=== PATIENT | female | born 1990 | race Caucasian/White ===

== ENCOUNTER → 2019-06-03 15:11 | Outpatient (CLI) | payer SELFPAY ==
[2019-06-03 17:37] LABS: Chlamydia Trachomatis by PCR Negative (Negative); Neisserai gonorrhoeae by PCR Negative (Negative); Probe Check PASS; Sample Adequacy Control PASS; Specimen Processing Control PASS
[2019-06-10 13:05] LABS: HPV Reflexed? NOT INDICATED
== END ==
PROVIDERS: Visit Provider Obstetrics & Gynecology
DX: Z12.4 Encounter for screening for malignant neoplasm of cervix (principal); Z11.3 Encounter for screening for infections with a predominantly sexual mode of transmission
CPT/HCPCS: 87491; 87591; 88175; G0145

== ENCOUNTER → 2019-06-18 09:54 | Outpatient (CLI) | payer SELFPAY ==
[2015-05-29 20:10] VITALS: BMI 33.7
[2019-06-18 10:52] LABS: Color, Urine Yellow (Yellow); Glucose, Dipstick Normal (Normal); Ketone-Dipstick Negative (Negative); Leukocyte Esterase-Dipstick 25 /ul (Negative); Nitrite-Dipstick Negative (Negative); Occult Blood-Urine Negative /ul (Negative); Protein-Dipstick Negative (Negative); Urine Bilirubin Dipstick Negative (Negative); Urine Clarity Clear (Clear); Urine Urobilinogen Normal (Normal)
[2019-06-18 10:53] LABS: Absolute Lymphocyte Count 1.94 X10^3/uL (0.83-4.51); Basophil# 0.03 X10^3/uL; Basophil% 0.4 % (0-1); Eosinophil# 0.05 X10^3/uL; Eosinophils% 0.7 % (0-5); Hematocrit 42.2 % (37-47); Hemoglobin 14.3 g/dL (12.0-15.0); Lymphocyte # 1.94 X10^3/ul (4.0); Lymphocyte % 26.1 % (19-41); Mean Corp Hgb Conc 33.9 g/dL (32-36); Mean Corpuscular Hgb 30.6 pg (27.0-32.0); Mean Corpuscular Volume 90.2 fL (81-99); Monocyte# 0.44 X10^3/uL; Monocyte% 5.9 % (0-10); NRBC Flagged by Analyzer 0 % (0-5); Neutrophil # 4.95 X10^3/uL (2.7-7.7); Neutrophil % 66.5 % (47-70); Platelet Count 234 K/mm3 (150-450); RBC Distribution Width CV 12.8 % (11.6-14.6); RBC Distribution Width SD 42.1 fl (35.1-43.9); Red Blood Count 4.68 M/mm3 (4.2-5.4); White Blood Count 7.4 K/mm3 (4.4-11.0)
[2019-06-18 11:26] LABS: Thyroid Stim Hormone (TSH) 0.27 uIU/mL (0.358-3.74)
[2019-06-18 12:08] LABS: HIV - WCH Non-Reactive (Nonreactive); Hepatitis B Surface Antigen Non-Reactive (Nonreactive); Hepatitis C Antibody Non-Reactive (Nonreactive); Rubella IgG 45.3 IU/mL
[2019-06-26 02:36] LABS: Prenatal RPR NONREACTIVE (NONREACTIVE)
== END ==
PROVIDERS: Visit Provider Obstetrics & Gynecology
DX: Z34.81 Encounter for supervision of other normal pregnancy, first trimester (principal)
CPT/HCPCS: 36415; 81002; 84443; 85025; 86703; 86762; 86803; 87340

== ENCOUNTER → 2019-10-15 09:52 | Outpatient (CLI) | payer SELFPAY ==
[2015-05-29 20:10] VITALS: BMI 33.7
[2019-10-15 12:35] LABS: Hematocrit 38.6 % (37-47); Hemoglobin 12.9 g/dL (12.0-15.0); Mean Corp Hgb Conc 33.4 g/dL (32-36); Mean Corpuscular Hgb 29.7 pg (27.0-32.0); Mean Corpuscular Volume 88.7 fL (81-99); Mean Platelet Vol. 9.9 fl (6.2-12.0); Platelet Count 234 K/mm3 (150-450); RBC Distribution Width CV 12.5 % (11.6-14.6); RBC Distribution Width SD 40.9 fl (35.1-43.9); Red Blood Count 4.35 M/mm3 (4.2-5.4); White Blood Count 8.8 K/mm3 (4.4-11.0)
[2019-10-15 13:10] LABS: Glucose Challenge Gest 1H 50g 156 mg/dL (70-140)
== END ==
PROVIDERS: Visit Provider Obstetrics & Gynecology
DX: Z34.83 Encounter for supervision of other normal pregnancy, third trimester (principal)
CPT/HCPCS: 36415; 82950; 85027; 86850

== ENCOUNTER → 2019-10-23 09:38 | Outpatient (CLI) | payer SELFPAY ==
[2019-10-23 10:55] LABS: Glucose GTT-Gestation. Fasting 93 mg/dL (<105)
[2019-10-23 12:10] LABS: Glucose GTT-Gestational 1 Hr 177 mg/dL (<190)
[2019-10-23 13:36] LABS: Glucose GTT-Gestational 3 Hr 117 L (<145)
[2019-10-23 13:40] LABS: Glucose GTT-Gestational 2 Hr 163 mg/dL (<165)
== END ==
PROVIDERS: Referring Provider Obstetrics & Gynecology; Visit Provider Obstetrics & Gynecology
DX: O24.912 Unspecified diabetes mellitus in pregnancy, second trimester (principal); Z3A.00 Weeks of gestation of pregnancy not specified
CPT/HCPCS: 36415; 82951; 82952

== ENCOUNTER → 2019-12-08 | Outpatient (CLI) | payer SELFPAY | END | disposition home or self-care (01) | LOC: LABSPEC 12-09 08:49 | PROVIDERS: Visit Provider Obstetrics & Gynecology | DX: Z36.85 Encounter for antenatal screening for Streptococcus B (principal) | CPT/HCPCS: 87081 ==

== ENCOUNTER 2019-12-30 05:30 | Inpatient (IN) | payer SELFPAY ==
--- NOTE | 2019-12-29 20:08 | PCM.HP.BLA ---
History and Physical Date of Admission: 12/30/19 [facility] ANTEPARTUM RECORD - HISTORY AND PHYSICAL (12/29/2019) Name: ADAM HAINESHA OB Physician: PB History of This : This is a 29-year-old 2 para 1 who presents for repeat . care has been remarkable for a prior hemorrhage with transfusion. [facility]'s Physician: GAUTAM Vaughn..................................................................... : 1990 Age: 29 Address: [address] [place] [address] Phone: (H) [phone] (O) [phone] Insurance Carrier: Emergency Contact: RIGO HAINES [phone] ...................................................................... Final AUDELIA: 01/05/20 By Ultrasound: 11 weeks 2 days PARITY: (G-Total Pregnancies P-Fullterm,Premature,Induced AB,Spont AB, Ectopics, Multiple,Living) AUDELIA CONFIRMATION: By LMP: 04/08/19 Initial Exam: 01/13/20 By First Ultrasound Exam: 01/05/20 Final AUDELIA: 01/05/20 OB PROBLEM LIST: Declines MSAFP, CF Dilated bilateral renal pelvis. right kidney=5.9mm left kidney=4.6mm. marginal previa 1.3cm from cx.; repeat u/s 28-32 weeks First child weighed 9 lbs 12 oz h/o GBS positive Possible travel to [place] in the spring, CDC Zika precautions discussed Post- hemmorhage with transfusion of PRBC's x 2 Prior CS, plan repeat ALLERGIES: NKDA MEDICATIONS: 28 mg iron-800 mcg tablet One pill by mouth once a day Supplement (s) [No Strength] Plexus daily SOCIAL HISTORY: Smoking - used to smoke but quit Alcohol Use - denies drinking Diet - balanced Diet Lifestyle - Exercise - regular Employer - [employer] Job Description - Illicit Drug Use - denies use of street drugs Sexual Activity - Residence - lives with Place of - [place], [place] Spouse-Sig Other Name - Rigo Haines Spouse-Sig Other Occupation - [employer] Spouse-Sig Other Phone No - [phone] Children Name(s) - Caden(15) PRIOR DELIVERY HISTORY DEL DATE GEST LAB WT LB WT OZ TYPE ANES LABOR TX 28 May 17 41 26 9 12 C-Sec Epidural No ANTEPARTUM FLOW CHART VISIT RTC FU F F WA U U DATE WK MD WKS HT PN HR M SS BP ED WT WA GL D EF ST __ ____ ___ __ __ ___ __ __ __ ___ __ __ __ ___ __ 23 Dec 38 JMW 3 38 + + 124/80 sl 221 tr - 14 Dec 37 JMW 1 37 + + 124/82 sl 220 - - 07 Dec 36 JMW 1 36 V + + 110/76 sl 216 - - ft 50 -2 03 Nov 30 JMW 3 31 + + 104/72 tr 210 - - 13 Oct 30 JMW 3 28 + ? 128/76 0 206 tr 1+ 14 Sep 25 JMW 4 24 + + 112/70 0 200 - - 18 Aug 21 JMW 4 20 + + 120/72 0 193 - - Jul 17 JMW 4 15 + O 114/64 0 187 - - Jun 12 4 on 112/78 184 ANTEPARTUM NOTE(S): Dec 24 2019: Pre-op for R/C-S, Good FM Dec 15 2019: Uncomfortable,Good FM Dec 08 2019: LARC form signed, GBS Today,Good FM Nov 03 2019: Good FM,Periodic Vertigo Oct 15 2020: CBC,OGCT,Antibody Screen Today,Rhogam Today,Sono Today Sep 15 2019: Glucola/Instructions given,Good FM,Feeling Well Aug 19 2019: Sono Today,FM Noted,Feeling Well Jul 14 2019: Doing Well, Declines AFP Jun 18 2019: COMPREHENSIVE ANTEPARTUM NOTE(S): Dec 24 2019: Yobani presents here today for PNV with questions answered and consents signed for Repeat scheduled for 12/30/19 with JW at [facility]. Reports feeling well and Good FM. PUSHPA Dec 15 2019: H taken to OB. tkg Jun 18 2019: Feeling well; denies cramping, VB, LOF; Dating US, labs drawn and NOB visit today; growth on US inconsistent w/LMP, changed AUDELIA to 01/2020 ; discussed warning signs, s/s PTL; RTO 4 weeks for PNV - KVW Jun 18 2019: Yobani is here for her NOB visit at 11 w 2 d, she is a with an AUDELIA of 01/05/2020. , Rigo, accompanies Yobani today; they have a 4 year old daughter at home who was delivered by C/S. Past history updated. Yobani states that she did not progress past 4 cms, that the baby weighed 9 lbs 12 oz, and that Yobani had a post- hemorrhage and needed 2 Units of PRBC's. Delivery at [facility] by repeat C/S is planned and Yobani will formula feed the baby. Office practice patterns reviewed, including labs that will be collected today. She has reviewed the office handbook, including emergencies/danger signs to report, and common OTC medications approved/not approved for use during . Yobani is a former smoker, she quit several years ago; she denies use of drugs or ETOH. Genetic Screening form completed. MSAFP and CF testing declined, consent signed as such. Yobani takes a daily multivitamin, and Plexus vitamin with DHA and probiotic; she states that she tolerates both well. Daily nausea is beginning to resolve, Yobani states that she generally feels well, and has not vomited at all. Reviewed round ligament pain, Kegel exercises, and reporting suspected UTI. Yobani eats an overall well balanced diet, limits intake of caffeine, and drinks roughly a gallon of water per 24 hrs. She knows to limit empty calories. caloric needs, and recommended weight gain discussed. Printed guide for food safety during provided with review. She does cross fit several times a week, and has modified her routine and how much she lifts for . She states that she understands all information provided during NOB visit, and has no questions following same. AW New Jun 05 2019: GC and chlamydia neg. EB Jun 03 2019: ok Jun 03 2019: Yobani presents here today for Missed Menses appointment. 28 y.o. G 2 P 1 previous smoker(quit in 2014) with history of regular menses and LMP of 04-08-19 lasting her average of 3 days. UPT is positive today in our Office. Presents at 7 weeks 6 days with an Approximate AUDELIA of 01-14-20 with plans for a Repeat at [facility]. Denies spotting/bleeding thus far in . Reports having periodic nausea and fatigue with tender breasts. History of normal pap screening in 2012. Medication and Allergy lists up-dated. Educational Materials given. PUSHPA REVIEW OF SYSTEMS: GENERAL - Denies fever, or chills SKIN - Denies rash, new skin lesions, or change in moles EYES - Denies blurred vision, or change in visual acuity EARS - Denies ear pain, or difficulty hearing NOSE - Denies nasal congestion, discharge, or bleeding MOUTH - Denies sore throat, or difficulty swallowing NECK - Denies pain or swelling RESPIRATORY - Denies shortness of breath, cough, wheezing CARDIOVASCULAR - Denies palpitations, chest pain, orthopnea, PND, peripheral edema, syncope or claudication GASTROINTESTINAL - Denies nausea, vomiting, diarrhea, constipation, Denies abdominal pain, melena and or bright red blood GENITOURINARY - Denies dysuria, frequency of urination, urgency, or hesitancy MUSCULOSKELETAL - Denies joint or muscle pain, or back pain NEUROLOGICAL - Denies localized numbness, weakness, or tingling PSYCHIATRIC - Denies depression, anxiety, substance abuse or suicide attempts ENDOCRINE - Denies heat or cold intolerance, weight loss or gain, increasing thirst HEMATO-IMMUNOLOGIC - Denies easy bruising, bleeding, oral ulcerations or recurrent infections GENETICS SCREENING: Age 35+ years: No Thalassemia: No Neural Tube Defect: No Down Syndrome: No DENYS-SACHS: No Sickle Cell Disease: No Hemophilia: No Musc. Dystrophy: No Cystic Fibrosis: No-declines screening [place] Chorea: No Mental Retardation: No Fragile X: No Other genetic: No Other defects: No SABs/still births: No Drugs since LMP: No INFECTION HISTORY: High risk AIDS: No High risk Hepatitis: No Exposed to TB: No Exposed to Herpes: No Rash/viral illness since LMP: No History of STD: No MENSTRUAL HISTORY: *Menses Amount/Duration: 3 daysMenses Regularity: RegularFrequency: monthlyMenarche (Age Onset): 12* PAST SUMMARY: PARITY: 1. Total Pregnancies............ 2 2. Full Term Pregnancies........ 1 3. Premature.................... 0 4. Abortions - Induced.......... 0 5. Abortions - Spontaneous...... 0 6. Ectopics..................... 0 7. Multiple Births.............. 0 8. Living Children.............. 1 PAST #1: Date of :.................. 05/30/15 Gestation Weeks:................ 41 Length of labor(hours):......... 26 Sex:............................ F Weight-lbs:............... 9 Weight-oz:................ 12 Type of Delivery:............... C-Sect Type of Anesthesia:............. Epidural Place of Delivery:.............. [place] Treatment of Labor?:.... No Comment: IOL, ARREST OF DILATION, PPH PHYSICAL EXAMINATION General Appearence: 29 yo female in no acute distress Vital Signs: AF, VSS Heart: RRR without rubs or gallops Lungs: CTA x 2 Breasts: deferred Abdomen: gravid Pelvis: Cervix: Not examined Presentation: cephalic Station: Not examined Fetus: Size: AGA Movement: present Heart: present Labs for : YOBANI HAINES since 04/10/2019 ORDER DATEIN DESCRIPTION VALUE UNITS RANGE A+ COMMENT CULTURE, GROUP B STREPTOCOCCUS 12/08/19 NOTE Original Ordering Provider: Rodger COUCH Culture Group B Beta Streptococcus is not isolated. Reviewed by RODGER GESTATIONAL GTT 3HR 100G 10/23/19 NOTE Original Ordering Provider: Rodger Castro GLU GTT-FASTING 93 mg/dL <105 GLUCOSE TOLERANCE TEST FOR Reference Interval GESTATIONAL DIABETES Fasting <105 mg/dL 1 hour <190 mg/dl 2 hour <165 mg/dl 3 hour <145 mg/dl GLU GTT- 1HR 177 mg/dL <190 GLU GTT- 2HR 163 mg/dL <165 GLU GTT- 3HR 117 L <145 Reviewed by KAILEE ANTIBODY SCREEN 10/15/19 [facility]~[address] [place], [address]~ ANTIBODY SCREEN NEGATIVE N Reviewed by RODGER GLUCOSE CHALLENGE GEST 1H 50G 10/15/19 NOTE Original Ordering Provider: Rodger Castro GLU GEST 50G 1H 156 mg/dL 70-140 H Reviewed by RODGER CBC-COMPLETE BLOOD CNT NO DIFF 10/15/19 NOTE Original Ordering Provider: Rodger Castro WBC 8.8 K/mm3 4.4-11.0 RBC 4.35 M/mm3 4.2-5.4 HGB 12.9 g/dL 12.0-15.0 HCT 38.6 % 37-47 MCV 88.7 fL 81-99 MCH 29.7 pg 27.0-32.0 MCHC 33.4 g/dL 32-36 RDW CV 12.5 % 11.6-14.6 RDW SD 40.9 fl 35.1-43.9 PLT 234 K/mm3 150-450 MPV 9.9 fl 6.2-12.0 Reviewed by RODGER RPR 06/18/19 NOTE Original Ordering Provider: Rodger Castro RPR NONREACTIVE NONREACTIVE Reviewed by RODGER T AND S-NO CHARGE W/PNP 06/18/19 Reason for Type AND Screen/Red Cells: Surgery? N [facility]~[address] [place], [address]~ BLOOD TYPE GEL B NEGATIVE N AB SCREEN GEL NEGATIVE N Reviewed by RODGER HEPATITIS C ANTIBODY 06/18/19 NOTE Original Ordering Provider: Rodger Castro HEPATITIS C AB Non-Reactive Nonreactive Non Reactive: < 0.8 Equivocal: >/= 0.8 to < 1.0 Reactive: >/= 1.0 The CDC recommends that a reactive/equivocal HCV antibody result be followed up by the HCV Nucleic Acid Amplification test (703813) Reviewed by RODGER HEPATITIS B SURFACE ANTIGEN 06/18/19 NOTE Original Ordering Provider: Rodger Castro HEPB SURFACE AG Non-Reactive Nonreactive Reviewed by RODGER HIV - H 06/18/19 NOTE Original Ordering Provider: Rodger Castro HIV - [facility] Non-Reactive Nonreactive Reviewed by RODGER RUBELLA IGG 06/18/19 NOTE Original Ordering Provider: Rodger Castro RUBELLA IGG 45.3 IU/mL Antibody results Interpretation of Immune Status < 5 IU/ml Presumed Non-immune 5 - < 10 IU/ml Equivocal > or = 10 IU/ml Presumed Immune Reviewed by RODGER THYROID STIM HORMONE (TSH) 06/18/19 NOTE Original Ordering Provider: Rodger Castro TSH 0.27 uIU/mL 0.358-3.74 L Reviewed by RODGER CBC W/DIFF, AUTOMATED 06/18/19 NOTE Original Ordering Provider: Rodger Castro WBC 7.4 K/mm3 4.4-11.0 RBC 4.68 M/mm3 4.2-5.4 HGB 14.3 g/dL 12.0-15.0 HCT 42.2 % 37-47 MCV 90.2 fL 81-99 MCH 30.6 pg 27.0-32.0 MCHC 33.9 g/dL 32-36 RDW CV 12.8 % 11.6-14.6 RDW SD 42.1 fl 35.1-43.9 PLT 234 K/mm3 150-450 MPV 10.0 fl 6.2-12.0 NEUT% 66.5 % 47-70 LY% 26.1 % 19-41 MONO% 5.9 % 0-10 EO% 0.7 % 0-5 BASO% 0.4 % 0-1 IM GRAN % 0.400 % 0.0-0.9 IG% - Immature Granulocytes (promyelocytes, myelocytes and metamyelocytes) > 1% indicates that a LEFT SHIFT is Present. ABSOLUTE NEUT 5.0 X10 3/uL 2.0-7.7 ABSOLUTE LYMPH 1.94 X10 3/uL 0.83-4.51 NRBC, FLAGGED 0 % 0-5 Reviewed by RODGER URINALYSIS, ROUTINE (DIPSTICK) 06/18/19 NOTE Original Ordering Provider: Rodger Castro COLOR Yellow Yellow CLARITY Clear Clear GLUCOSE, UR Normal mg/dl Normal BILIRUBIN URINE Negative mg/dL Negative KETONE UR Negative mg/dl Negative SP.GR. DIPSTX 1.010 1.002-1.030 PH UR 7.0 5.0 - 8.0 PROT DIPSTX Negative mg/dl Negative UROBILI Normal mg/dl Normal NITRITE UR Negative Negative OCCULT BLOOD-UR Negative /ul Negative LEUK ESTERASE 25 /ul Negative H Reviewed by RODGER MCLEAN IG W/REFLEX HR HPV APTIMA 06/03/19 NOTE Original Ordering Provider: Rodger Castro DIAGN . NEGATIVE FOR INTRAEPITHELIAL LESION OR MALIGNANCY. THIS SPECIMEN WAS RESCREENED PART OF OUR FOOD SERVER PROGRAM. ADEQ . Satisfactory for evaluation. Endocervical and/or squamous metaplastic cells (endocervical component) are present. PERFORM . Paz Cunningham, Senior Administrator Support (ASCP) QC REV . Zakiya Moreira, Supervisory Senior Administrator Support (ASCP) TEST METHOD . This liquid based ThinPrep(R) pap test was screened with the use of an image guided system. COMM . . PAPSMR . The Pap smear is a screening test designed to aid in the detection of premalignant and malignant conditions of the uterine cervix. It is not a diagnostic procedure and should not be used as the sole means of detecting cervical cancer. Both false-positive and false-negative reports do occur. HPV RFLX . The HPV DNA reflex criteria were not met with this specimen result therefore, no HPV testing was performed. Performed at: [address] [id number] Caregiver Services Home: Juanita Prakash MD, Phone: [phone] Reviewed by GUERRERO YATES/ANYI [facility] BY PCR 06/03/19 NOTE Original Ordering Provider: Rodger Castro [facility] PCR Negative Negative ANYI BY PCR Negative Negative Reviewed by GUERRERO Impression /Plan: 39+ week intrauterine for repeat . We have discussed the risk, benefits, and alternatives of this procedure and the patient desires we proceed. Preparations in progress for delivery. Essential Procedure Criteria Procedure Essential: Yes Criteria Note: On 11/17/2019 the [place] Department of Health ([facility]) Public Order signed by [facility] Director Joana Acosta M.D., regarding the Management of Non-Essential Surgeries and Procedures for the purpose of preserving Personal Protective Equipment (PPE) and critical hospital capacity and resources within [place] went into effect as of 11/18/2019 at 5:00PM. According to the [facility] Public Order: This action will remain in full force and effect until the State of Emergency declared by the Governor no longer exists or the Director of the [facility] rescinds or modifies this Order.. This [facility] order stated all non-essential or elective surgeries and procedures that utilize PPE should be delayed unless there is undue risk to the current or future health of a patient. After reviewing the aforementioned [facility] Public Order and the patients clinical case, I have determined that the scheduled procedure meets the criteria to go forward. Risk to Patient if Procedure Delayed: Risk of rapidly worsening to severe symptoms if delayed
[2019-12-30] VITALS (21 sets, daily range): BP systolic 105–126; BP diastolic 57–80; PULSE 70–96; RESP 12–18; TEMP 36.1–36.8; O2SAT 97–100; BMI 34.4
[2019-12-30] MEDS: Lactated Ringers 1,000 ML 999 ML IV (05:50)
[2019-12-30 06:05] LABS: Absolute Lymphocyte Count 2.25 X10^3/uL (0.83-4.51); Absolute Neutrophil Count 7.2 X10^3/uL (2.0-7.7); Basophil# 0.03 X10^3/uL; Basophil% 0.3 % (0-1); Eosinophil# 0.07 X10^3/uL; Eosinophils% 0.7 % (0-5); Hematocrit 37.3 % (37-47); Hemoglobin 12.5 g/dL (12.0-15.0); Lymphocyte # 2.25 X10^3/ul (4.0); Lymphocyte % 21.3 % (19-41); Mean Corp Hgb Conc 33.5 g/dL (32-36); Mean Corpuscular Hgb 29.1 pg (27.0-32.0); Mean Corpuscular Volume 86.9 fL (81-99); Mean Platelet Vol. 9.9 fl (6.2-12.0); Monocyte# 0.89 X10^3/uL; Monocyte% 8.4 % (0-10); NRBC Flagged by Analyzer 0 % (0-5); Neutrophil # 7.22 X10^3/uL (2.7-7.7); Neutrophil % 68.5 % (47-70); Platelet Count 219 K/mm3 (150-450); RBC Distribution Width SD 40.7 fl (35.1-43.9); Red Blood Count 4.29 M/mm3 (4.2-5.4); White Blood Count 10.5 K/mm3 (4.4-11.0)
[2019-12-30] MEDS: Lactated Ringers 1,000 ML 150 ML IV (06:48)
[2019-12-30] MEDS: Sodium Citrate/Citric Acid 30 ML UDC PO (07:00)
--- NOTE | 2019-12-30 07:16 | PCM.OPRPT ---
Delivery Classification: Scheduled Final AUDELIA: 01/05/20 Final AUDELIA Source: US <20 weeks Gestational age: 39 Weeks and 1 Days filer and sander: Logan Rosenbaum Type of Anesthesia:: Spinal - With Duramorph Implants Used: None Date of Procedure: 12/30/19 Pre-Operative Diagnosis: Prior Section Post-Operative Diagnosis: Prior Section Description of Procedure: Surgeon: Darrius Castro MD, FACOG Anesthesia: Jessica Varghese CRNA Procedure: Repeat Low Transverse Cervical Caesarean Section Findings: Viable female with Apgars of 8/9 in caput anterior presentation with clear amniotic fluid and normal three-vessel placenta. Indication: This is a 29-year-old who presents for her second at 39+ weeks gestation. care has otherwise been uneventful. The patient has been counseled regarding the risk and indications of this procedure including the possibility of bleeding infection and injury to surrounding structures such as bowel bladder. All questions were answered. Procedure: Patient was taken to the operating room where after spinal anesthesia was placed, the patient was prepped and draped in usual sterile fashion and a German catheter was placed. The abdomen was entered through the patient's prior Pfannenstiel incision and peritoneum was entered bluntly. After developing a bladder flap on the lower uterine segment a low transverse incision was made on the uterus and head was easily delivered onto the operative field the nose mouth and oropharynx were bulb suctioned. Subsequently a viable female was born with Apgars of 8/9. The infant was noted to cry move all extremities vigorously on the operative field. The umbilical cord was doubly clamped and ligated and handed to the nursery personnel who were present for the delivery. Placenta was delivered and noted to be 3 vessels and normal. Uterus was exteriorized and remaining placental tissue was removed. The uterus was then closed in 2 layers first with running locked 0 Vicryl suture followed by a second imbricating layer with 0 Vicryl suture. 0 Vicryl suture was then used in a horizontal mattress interrupted fashion to affect final hemostasis of the uterine incision line. Normal fallopian tubes and ovaries were visualized and the uterus was returned to the pelvis. Hemostasis was noted and rectus abdominis muscles were reapproximated in the midline with interrupted Number 0 Vicryl suture in a horizontal mattress fashion. Fascia was closed with running Number 1 PDS Strata fix suture. Subcutaneous tissue was irrigated with copious amounts of saline solution and then closed with running 3-0 Vicryl suture. Skin was closed with 4-0 monocryl suture in a running subcuticular fashion. Steri strips and a Mepilex dressing were placed across the incision. The patient tolerated the procedure well and was taken to the recovery room in satisfactory condition. Sponge, needle, and instrument counts were all reportedly correct. EBL was less than 500 cc. Ancef 2 gms IV was given prior to the procedure. Spicemen to Pathology: None Complications: None Amniotic Fluid Description: Clear Placenta Disposition: [facility] Specimen(s) sent to pathology: None Drain: German to straight drain Fluids Replaced: Crystalloid Cord Entanglement: None Cord Vessel Description: 3 Vessels Esitmated Blood Loss (ml): 500 cc Infant Gender: Female (1 minute): 8 (5 minute): 9 Antibiotic Given: Ancef 2 grams IV x1 Pt instructed on risks of surgery: Bleeding, Infection, Injury to surrounding structure(s) including bowel and bladder Complications: None - Admit VTE Documentation VTE Present on Admission: Yes VTE Mechan Device Prophylaxis: SCD's VTE Pharm Prophylaxis ordered?: Yes
[2019-12-30] MEDS: Cefazolin 2 GM in 0.9% Normal Saline 100 ML IV (07:17)
--- NOTE | 2019-12-30 07:18 | DCINST_ITS ---
Discharge Diet: No Restrictions Discharge Activity: May not drive while taking narcotic pain medications., May Shower, May Take a Tub Bath May resume sexual activity in: 4-6 weeks Lifting Restrictions: 20 pounds Additional Activity Instructions:: Nothing in the vagina for 4-6 weeks. You may return to work/school in 6 weeks. Call your doctor if your incision/area has: Continuous Slow Oozing, Sudden Increased Bleeding, Increased Pain/ Swelling, Increased Redness, Foul Smelling Discharge Call your doctor if you observe: Fever of 101 or Higher, Inability to urinate, Inability to have a bowel movement, Using more than one pad per hour Additional Instructions: If you experience any of the following, contact your healthcare provider. * Bleeding that soaks a pad every hour for 2 hours * Fever 100.4 or higher * Unrelieved incision or abdominal pain * Swelling, redness, discharge or bleeding from your incision or episiotomy site * Your incision begins to separate * Problems urinating (including inability to urinate or burning while urinating). * Visual changes * Severe headache * Flu-like symptoms * Pain or redness in one of both of your breasts * Pain, warmth, tenderness or swelling in your legs, especially the calf area * Frequent nausea and vomiting * Symptoms of depression or anxiety If you experience any of the following, call 911 or go to the nearest Emergency Room. * Chest pain * Problems breathing * Seizure activity * Partial or complete paralysis of a body part, slurred speech, weakness or drooping of the face, or a sudden inability to walk or hold your balance Allergies/Adverse Reactions: Allergies No Known Allergies Allergy (Verified 12/30/19 05:37) Medications to take at Discharge Prenatabs FA 1 tab PO DAILY 05/29/15 Docusate Sodium [Colace] 100 mg PO BID PRN PRN #60 capsule 12/30/19 Oxycodone [Oxyir] 5 mg PO Q6H PRN PRN 7 Days #20 tablet 12/30/19 The following prescriptions were given: Docusate Sodium [Colace] 100 mg PO BID PRN PRN #60 capsule PRN Reason: Constipation Oxycodone [Oxyir] 5 mg PO Q6H PRN PRN 7 Days #20 tablet PRN Reason: Pain Score 6-10/10 Follow-Up: Call to make an appointment with your doctor for an incision check in 1-2 weeks. You will also need a 6 week post- follow up appointment. Test results from this visit will be discussed in further detail at your follow- up appointment, if applicable. Please Follow Up With: Darrius Castro MD - [phone] When: Call to make an appointment for an incision check in 2 weeks.
[2019-12-30] MEDS: Oxytocin 30 units/NS 500 ml 30 UNITS/500 ML IV.SOLN 167 UNITS IV ×2 (08:11→10:32)
[2019-12-30] MEDS: Ketorolac 30 MG/ML Syringe IV ×3 (12:02→23:40)
[2019-12-30] MEDS: Lactated Ringers 1,000 ML 100 ML IV ×2 (13:43→18:39)
[2019-12-30] MEDS: Cefazolin 1 GM/50 ML BAG IV ×2 (14:46→23:05)
[2019-12-30] MEDS: 0.9% Saline Lock 10 ML Syringe IV ×4 (18:27→23:41)
[2019-12-30] MEDS: Enoxaparin 40 MG/0.4 ML Syringe SC (20:20)
--- NOTE | 2019-12-30 20:30 | NURSING ---
Pt up to chair at 2004 and back into bed at 2019. Pt moving well. No complaints of pain at this time.
--- NOTE | 2019-12-31 | NURSING ---
Pt attempted to urinate at 2335. No output at this time. RN encouraged pt to continue drinking fluid. Pt moving well, ambulates to bathroom and back to be by self. No further complaints at this time.
[2019-12-31 04:35] VITALS: BP 107/58; PULSE 78; RESP 18; TEMP 36.5; O2SAT 97
[2019-12-31] MEDS: Acetaminophen 500 MG Tablet 1000 MG PO ×2 (04:43→13:48)
[2019-12-31] MEDS: 0.9% Saline Lock 10 ML Syringe IV ×3 (05:50→11:51)
[2019-12-31] MEDS: Ketorolac 30 MG/ML Syringe IV (05:50)
[2019-12-31 06:45] LABS: Hematocrit 31.3 % (37-47); Hemoglobin 10.5 g/dL (12.0-15.0); Mean Corp Hgb Conc 33.5 g/dL (32-36); Mean Corpuscular Hgb 30.5 pg (27.0-32.0); Mean Platelet Vol. 9.7 fl (6.2-12.0); Platelet Count 156 K/mm3 (150-450); RBC Distribution Width CV 13.2 % (11.6-14.6); RBC Distribution Width SD 42.5 fl (35.1-43.9); Red Blood Count 3.44 M/mm3 (4.2-5.4)
[2019-12-31 08:21] VITALS: BP 123/71; PULSE 73; RESP 18; TEMP 36.6
--- NOTE | 2019-12-31 09:09 | PCM.PN.OB ---
Subjective: Doing well. Denies heavy bleeding or uncontrolled pain. Having some issues with latching daughter. Has been up ambulating around room. Wasn't able to void on her own until this AM. Objective: VSS. Fundus firm, midline, u/1. Lochia rubra moderate. Incision CDI. Nipples slightly flat. Urinated 1000mL at 0830 - Physical Exam Vitals/I&O's: Vital Signs Temp Pulse Resp BP Pulse Ox 97.8 F 73 18 123/71 H 97 12/31/19 08:21 12/31/19 08:21 12/31/19 08:21 12/31/19 08:21 12/31/19 04:35 Oxygen Delivery Method Room Air Weight: 99.9 kg Body Mass Index (BMI) 34.4 Intake and Output for Last 24 Hours 12/29/19 12/30/19 12/31/19 23:59 23:59 23:59 Intake Total 3200.65 / 3200.65 1000 / 1000 Output Total 1900 / 1900 2000 / 1999 Balance 1300.65 / 1300.65 -1000 / -1000 General: Alert, Oriented x3, Cooperative HEENT: Atraumatic, PERRLA, EOMI, Normocephalic Neck: Supple, No JVD, Negative Carotid Bruits Lungs: Clear to auscultation, Normal air movement Cardiovascular: Regular rate, No murmurs Abdomen: Bowel Sounds Present, Soft, Non Tender, Hypoactive Bowel Sounds, - - incision CDI, fundus u/1 Extremities: No edema, Capillary Refill Less than 3 Seconds Skin: No rashes, No breakdown Musculoskeletal: No Tenderness to Palpation of Joints or Extremities Neurological: Cranial nerves II-XII grossly intact Psych/Mental Status: Normal Affect, Appropriate Laboratory Results 12/31/19 06:34: WBC 10.0, RBC 3.44 L, Hgb 10.5 L, Hct 31.3 L, MCV 91.0, MCH 30.5, MCHC 33.5, RDW Std Deviation 42.5, RDW Coeff of Estiven 13.2, Plt Count 156, MPV 9.7 Current Medications Acetaminophen (Tylenol) 1,000 mg PO Q8H PRN PRN Reason: Pain Score 1-3/10 Last Admin: 12/31/19 04:43 Dose: 1,000 mg Documented by: Bisacodyl (Dulcolax) 10 mg RECTAL UD PRN PRN Reason: If no BM Diphenhydramine HCl (Benadryl) 25 mg PO Q6H PRN PRN PRN Reason: ITCHING Stop: 12/31/19 12:06 Enoxaparin Sodium (Lovenox) 40 mg SC DAILY ON LICENSE OF [facility] Last Admin: 12/30/19 20:20 Dose: 40 mg Documented by: Hydrocortisone (Hytone) 1 applic TOPICAL TID PRN PRN; Protocol PRN Reason: Discomfort Naloxone HCl 4 mg/ Dextrose 504 mls @ 0 mls/hr IV .Q0M PRN; Protocol PRN Reason: Respiratory depression Naloxone HCl 4 mg/ Dextrose 504 mls @ 0 mls/hr IV .Q0M PRN; Protocol PRN Reason: To maintain Resp. rate >10 Ibuprofen (Motrin) 600 mg PO Q6H PRN PRN PRN Reason: Pain Score 1-3/10 Ketorolac Tromethamine (Toradol (Bkc)) 30 mg IV Q6 ON LICENSE OF [facility] Stop: 01/01/20 06:01 Last Admin: 12/31/19 05:50 Dose: 30 mg Documented by: Methylergonovine Maleate (Methergine) 0.2 mg IM X1 PRN PRN Reason: Uterine Atony Naloxone HCl (Narcan) 0.02 mg IV Q1M PRN PRN Reason: RR <10 and pt unresponsive Ondansetron HCl (Zofran) 4 mg IV Q4H PRN PRN PRN Reason: Nausea Oxycodone HCl (Oxyir) 5 - 10 mg PO Q4H PRN PRN PRN Reason: Pain Score 4-10/10 Prochlorperazine Edisylate (Compazine Iv) 10 mg IV Q6H PRN PRN PRN Reason: NAUSEA Senna/Docusate Sodium (Senokot-S, Ailyn-Colace) 0 tablet PO DAILY PRN PRN Reason: Constipation Simethicone (Mylicon) 80 mg PO PCHS PRN PRN Reason: Indigestion/stomach pain Sodium Chloride () 5 - 15 ml IV UD PRN PRN Reason: SALINE FLUSH Last Admin: 12/31/19 05:50 Dose: 10 ml Documented by: Medical Necessity - Tobacco Use Smoking Status: Former smoker Assessment/Plan POD #1 Repeat Csection Normal involution and course with difficulty. Latch support given and was notified Continue post op orders Possible discharge tomorrow or Saturday, hasn't decided
[2019-12-31] MEDS: Enoxaparin 40 MG/0.4 ML Syringe SC (10:28)
[2019-12-31] MEDS: Ibuprofen 600 MG Tablet PO ×2 (11:58→19:58)
[2019-12-31] MEDS: oxyCODONE 5 MG Tablet PO ×2 (14:59→21:59)
[2019-12-31] MEDS: Senna/Docusate Sodium 1 Tablet PO (14:59)
[2019-12-31 15:00] VITALS: BP 108/66; PULSE 82; RESP 16; TEMP 36.6
[2019-12-31 19:45] VITALS: BP 112/56; PULSE 77; RESP 18; TEMP 36.4; O2SAT 97
[2020-01-01] MEDS: Acetaminophen 500 MG Tablet 1000 MG PO ×2 (01:22→13:59)
[2020-01-01 01:23] VITALS: BP 116/54; PULSE 80; RESP 18; TEMP 36.5
[2020-01-01] MEDS: Ibuprofen 600 MG Tablet PO ×2 (05:38→12:40)
--- NOTE | 2020-01-01 08:47 | PCM.PN.OB ---
Subjective: Lynn is sore, she feels pain improved with medication just that I need to stay on top of it. She is out of bed, ambulating and voiding without difficulty, passing flatus. Tolerates PO. Breast and bottlefeeding. Denies heavy lochia. Objective: AVSS - Physical Exam Vitals/I&O's: Vital Signs Temp Pulse Resp BP Pulse Ox 97.7 F L 80 18 116/54 L 97 01/01/20 01:23 01/01/20 01:23 01/01/20 01:23 01/01/20 01:23 12/31/19 19:45 Oxygen Delivery Method Room Air Weight: 99.9 kg Body Mass Index (BMI) 34.4 Intake and Output for Last 24 Hours 12/30/19 12/31/19 01/01/20 23:59 23:59 23:59 Intake Total 3200.65 / 3200.65 1000 / 1000 Output Total 1900 / 1900 3000 / 3000 Balance 1300.65 / 1300.65 -1999 / General: Alert, Oriented x3, Cooperative, No apparent distress HEENT: Atraumatic, Normocephalic Lungs: Clear to auscultation, Normal air movement Cardiovascular: Regular rate, Regular Rhythm, Normal S1, Normal S2 Abdomen: Soft, Non Tender, Non-Distended, - - Fundus firm and nontender, incisional dressing c/d/i Extremities: No edema, No Calf Tenderness Neurological: Neuro grossly intact Psych/Mental Status: Normal Affect, Appropriate, Alert and oriented to time, place, person, mood and affect Current Medications Acetaminophen (Tylenol) 1,000 mg PO Q8H PRN PRN Reason: Pain Score 1-3/10 Last Admin: 01/01/20 01:22 Dose: 1,000 mg Documented by: Bisacodyl (Dulcolax) 10 mg RECTAL UD PRN PRN Reason: If no BM Enoxaparin Sodium (Lovenox) 40 mg SC DAILY [facility] Last Admin: 12/31/19 10:28 Dose: 40 mg Documented by: Hydrocortisone (Hytone) 1 applic TOPICAL TID PRN PRN; Protocol PRN Reason: Discomfort Naloxone HCl 4 mg/ Dextrose 504 mls @ 0 mls/hr IV .Q0M PRN; Protocol PRN Reason: Respiratory depression Naloxone HCl 4 mg/ Dextrose 504 mls @ 0 mls/hr IV .Q0M PRN; Protocol PRN Reason: To maintain Resp. rate >10 Ibuprofen (Motrin) 600 mg PO Q6H PRN PRN PRN Reason: Pain Score 1-3/10 Last Admin: 01/01/20 05:38 Dose: 600 mg Documented by: Methylergonovine Maleate (Methergine) 0.2 mg IM X1 PRN PRN Reason: Uterine Atony Naloxone HCl (Narcan) 0.02 mg IV Q1M PRN PRN Reason: RR <10 and pt unresponsive Ondansetron HCl (Zofran) 4 mg IV Q4H PRN PRN PRN Reason: Nausea Oxycodone HCl (Oxyir) 5 - 10 mg PO Q4H PRN PRN PRN Reason: Pain Score 4-10/10 Last Admin: 12/31/19 21:59 Dose: 10 mg Documented by: Prochlorperazine Edisylate (Compazine Iv) 10 mg IV Q6H PRN PRN PRN Reason: NAUSEA Senna/Docusate Sodium (Senokot-S, Ailyn-Colace) 0 tablet PO DAILY PRN PRN Reason: Constipation Last Admin: 12/31/19 14:59 Dose: 2 tablet Documented by: Simethicone (Mylicon) 80 mg PO PCHS PRN PRN Reason: Indigestion/stomach pain Sodium Chloride () 5 - 15 ml IV UD PRN PRN Reason: SALINE FLUSH Last Admin: 12/31/19 11:51 Dose: 10 ml Documented by: Medical Necessity - Tobacco Use Smoking Status: Former smoker Assessment/Plan 29yo POD#2 s/p RLTCS doing well. -B neg, infant also B neg -Routine postop care -d/c home today
[2020-01-01 08:50] VITALS: BP 123/58; PULSE 92; RESP 16; TEMP 36.6; O2SAT 97
[2020-01-01] MEDS: Enoxaparin 40 MG/0.4 ML Syringe SC (08:52)
[2020-01-01] MEDS: oxyCODONE 5 MG Tablet PO (08:52)
[2020-01-01 13:35] VITALS: BP 111/68; PULSE 76; RESP 20; TEMP 36.3
== END 2020-01-01 16:25 | disposition home or self-care (01) | DRG 788 ==
PROVIDERS: Admitting Provider Obstetrics & Gynecology; Visit Provider Obstetrics & Gynecology
PROC: 10D00Z1 Extraction of Products of Conception, Low, Open Approach (ICD-10-PCS; CPT 59514; principal; 2019-12-30 07:15)
DX: O34.211 Maternal care for low transverse scar from previous cesarean delivery (principal); Z3A.39 39 weeks gestation of pregnancy; Z37.0 Single live birth; Z87.891 Personal history of nicotine dependence; Z87.59 Personal history of other complications of pregnancy, childbirth and the puerperium
CPT/HCPCS: 85025; 85027; 86850; 86900; 86901; 99218; J7120; A4216; G0378; J2405